=== PATIENT | male | born 1950 | race Caucasian/White ===

== ENCOUNTER 2020-03-16 06:24 | Emergency (ER) | payer MEDICARE, OTHER ==
--- NOTE | 2020-03-16 06:45 | ER Document Report ---
ED General - General Stated Complaint: CARDIAC ARREST Time Seen by Provider: 03/16/20 06:34 - HPI Notes: Chief complaint: Cardiac arrest History of present illness: 69-year-old male presented via EMS after experiencing a systolic cardiopulmonary arrest at home. Patient had undergone CABG procedure at [facility] on 03/04/[address] El Lopez. He had been discharged on the of this month. EMS indicates that the patient had a fall at home this morning and was unresponsive with initiation of CPR by family. Upon EMS arrival patient was in asystolic arr est. He was intubated and cardiopulmonary resuscitation was conducted with administration of greater than 10 doses of epinephrine in the field along with IV sodium bicarbonate. They had some brief return of spontaneous circulation. This was lost during transport. He arrived at our facility on asystole. Past Medical History - General Information source: Emergency Med Personnel, Outside Facility Records - Social History Smoking Status: Unknown if Ever Smoked Family History: CAD - Past Medical History Cardiac Medical History: Reports: Hx Coronary Artery Disease, Hx Peripheral Vascular Disease Past Surgical History: Reports: Hx Cardiac Surgery Review of Systems - Review of Systems -: Yes ROS unobtainable due to patient's medical condition Physical Exam - Notes Notes: GENERAL: Elderly male with no spontaneous cardiac activity or respiratory effort with CPR in progress. Patient is intubated. SKIN: Cool, pale, mottled and dry. HEAD: Normocephalic atraumatic. EYES: Pupils fixed dilated and equal. EARS: CANALS AND TMS CLEAR. NOSE: CLEAR. MOUTH: ET tube in mouth. NECK: Supple. CHEST: No spontaneous respirations. Patient is being bagged via ET tube. Symmetrical breath sounds with bagging. HEART: Healing for CABG scar present midline. No heart sounds. ABDOMEN: Mildly distended. Soft without masses, organomegaly. GENITALIA: Normal uncircumcised male. EXTREMITIES: IO line in left pretibial area. 1+ bilateral pretibial edema. No peripheral pulses. NEUROLOGICAL: GCS 3 Course - Re-evaluation Re-evalutation: 03/16/20 06:46 Patient was in asystole upon arrival here. Prolonged ACLS resuscitation with intubation in the field of over 90 minutes had been conducted. I gave 1 additional round of IV epinephrine and bicarb IV. Patient remained in asystole with no cardiac activity on the monitor, no visible cardiac activity on bedside cardiac ultrasound. Resuscitative efforts were discontinued at 0628 hrs. I spoke with Dr. Peña television schedule coordinator for Dr. Lopez is attending cardiac surgeon and they have agreed to sign a certificate. I have informed patient's of the patient's demise personally. 03/16/20 06:55 Further information obtained from the patient's . She indicates since he has been home from the hospital he has been having nightly episodes of shortness of breath and diaphoresis. He has been sleeping on the floor. He is complained of pain from head to toe. He apparently has refused further medical attention. EMS was called at home last night around midnight and help to get him back into bed. He declined transport to the hospital at that time. She states that about 2 hours prior to arrival here the patient had briefly gone to sleep on the floor. Few minutes later she looked over and saw him having a possible seizure on the floor. Says he lost control of his bladder and made some chewing movements with his tongue. He seemed to be gasping for breath. Initially he had a pulse. She called 911 because he was unresponsive. He subsequently lost his pulse and family initiated CPR. This was continued until EMS arrived. Critical Care Note - Critical Care Note Total time excluding time spent on procedures (mins): 35 - Cardiopulmonary resuscitation Discharge - Discharge Clinical Impression: Cardiopulmonary arrest Disposition:
[2020-03-16] MEDS ORDERED: EPINEPHRINE INJ 1 MG/10 ML DISP.SYRIN ONE (10:06)
[2020-03-16] MEDS ORDERED: SODIUM BICARBONATE 8.4% INJ 50 MEQ/50 ML DISP.SYRIN ONE (10:06)
== END 2020-03-16 08:14 | disposition expired ==
LOC: ER 06:24
DX: I46.9 Cardiac arrest, cause unspecified (principal); R14.0 Abdominal distension (gaseous); R60.0 Localized edema; I25.10 Atherosclerotic heart disease of native coronary artery without angina pectoris; Z95.1 Presence of aortocoronary bypass graft
CPT/HCPCS: 99285; 92950; J0171; J3490